=== PATIENT | female | born 1975 | race Caucasian/White ===

== ENCOUNTER → 2020-07-09 09:06 | Outpatient (REF) | payer MEDICAID, SELFPAY ==
--- NOTE | 2020-07-09 11:00 | CA_ITS ---
Acquisition Time: 2020-07-09 10:37:30 Total Exercise Time: 00:07:18 Test Indications: Chest Pain Medications: METOPROLOL MECLAZINE Protocol: LISSY Max HR: 162 BPM 92% of Pred: 175 BPM Max BP: 138/080 mmHG Max Work Load: 9.0 METS Stress ECHO using Bruse protocol. Pt tolerated well, denies any anginal sx. Pt exercised for total of 7 min 18 sec. METS 9.00 and TAPHR up to 92 %. EKG without any arrhythmias, no ischemic changes seen during exercise or in recovery period. ECHO images taken at rest and immediately after peak HR reached. Definity contrast used. Normotensive resaponse to exercise. Test reviewed with Dr. Weir. Referred By: Renny Murray Overread By: Shaka Anderson
== END ==
LOC: HO.CARD 09:06
PROVIDERS: Visit Provider Internal Medicine Cardiovascular Disease
DX: R07.89 Other chest pain (principal)
CPT/HCPCS: 93350; Q9957

== ENCOUNTER 2020-08-05 13:28 | Outpatient (REF) | payer MEDICAID, SELFPAY ==
[2020-08-05 14:56] LABS: Alanine Aminotransferase 13 U/L (0-31); Aspartate Amino Transferase 17 U/L (5-31); Cholesterol 201 mg/dL; HDL Cholesterol 42 mg/dL; LDL Cholesterol Calculated 138 mg/dl; Triglycerides 108 mg/dL
== END 2020-08-05 13:29 | disposition home or self-care (01) ==
LOC: HO.LAB 13:28
PROVIDERS: PCP Family Medicine; Visit Provider Internal Medicine Cardiovascular Disease
DX: E78.5 Hyperlipidemia, unspecified (principal)
CPT/HCPCS: 36415; 80061; 84450; 84460

== ENCOUNTER 2023-01-14 08:23 | Outpatient (REF) | payer MEDICAID, SELFPAY ==
[2023-01-14 11:56] LABS: Cholesterol 167 mg/dL; HDL Cholesterol 41 mg/dL; LDL Cholesterol Calculated 110 mg/dl; Triglycerides 80 mg/dL
== END 2023-01-14 08:24 | disposition home or self-care (01) ==
LOC: HO.HHCL 08:23
PROVIDERS: Visit Provider Internal Medicine Cardiovascular Disease
DX: E78.5 Hyperlipidemia, unspecified (principal)
CPT/HCPCS: 36415; 80061

== ENCOUNTER 2025-01-23 09:30 | Outpatient (REF) | payer MEDICAID, SELFPAY ==
--- OUTSIDE RECORDS SUMMARY | 2025-01-23 10:08 | XMS_ITS | Clinical Summary ---
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 18 g 01/05/2024 Active Dextromethorpha n-guaiFENesin (Mucinex DM) 30-600 MG tablet sustained-relea se 12 hour Use 1 tab TID 28 tablet 01/05/2024 Active Active Problems Problem Noted Date Diagnosed Date Class 1 obesity due to exces s calories with body mass index (BMI) of 33.0 to 33.9 in adult 01/16/2025 Assessment & Plan (01/16/2025 2:12 PM EDT): Discussed re weight reduction options including exercise, life style modifications, diet. Recommended to decrease soda and sugary beverage consumption, increase protein intake with meals (at least 1 portion of protein with each meal) to assist with satiety, increase dietary fiber Recommended at least 150 min/week of moderate intensity exercise. Order labs and follow-up with me next month Episodic lightheadedness 01/16/2025 Assessment & Plan (01/16/2025 2:14 PM EDT): Unclear if related to migraines only, could be related to positional vertigo. Order labs and keep symptoms diary, follow-up with me in 4 weeks Palpitations 01/16/2025 Assessment & Plan (01/16/2025 2:12 PM EDT): Unclear reason at this time. Will obtain cardiology records from Dr. Alcala. Continue metoprolol and follow-up with me in 4 weeks Order labs. Will continue to evaluate VIKKI at next visit Breast cancer screening by mammogram 01/16/2025 Assessment & Plan (01/16/2025 2:12 PM EDT): Order mammogram Generalized anxiety disorder 01/16/2025 Assessment & Plan (01/16/2025 2:13 PM EDT): VIKKI today is 2 the patient reports recurrent anxiety for many years, she did not want to elaborate on some of her family history. She declined referral at this time Will continue to evaluate at next visit, order labs Chronic low back pain 05/09/2015 Migraine 05/09/2015 Assessment & Plan (01/16/2025 2:14 PM EDT): We discussed the importance of taking NSAIDs or Excedrin Migraine JULIANN at onset of migraine. She will keep a symptom diary and follow-up with me at next visit. Order labs, may or not need an MRI of the brain --> will evaluate after next visit Mitral valve regurgitation 05/09/2015 Encounters Date Type Department Care Team Description 01/16/2025 9:15 AM EDT Office Visit [facility] [address] [place] [address] Holly Stanley MD Migraine with aura and without status migrainosus, not intractable (Primary Dx); Episodic lightheadedness; Palpitations; Generalized anxiety disorder; Class 1 obesity due to excess calories with body mass index (BMI) of 33.0 to 33.9 in adult, unspecified whether serious comorbidity present; Breast cancer screening by mammogram; Dietary counseling; Exercise counseling 01/16/2025 Telephone [facility] [address] [place] [address] Holly Stanley MD MAMMO ORDER FAXED 01/16/2025 Telephone [facility] [address] [place], [place] [phone] Holly Stanley MD Dr.Nitin record request echo 01/16/2025 Travel 01/15/2025 Telephone [facility] [address] [place], [place] [phone] Holly Stanley MD chart prep 01/09/2025 Patient Outreach [facility] [address] [place], [place] [phone] Holly Stanley MD Pre-visit Planning (SDOH negative. Tobacco screening negative. ) 01/09/2025 Travel 11/07/2024 Telephone [facility] [address] [place], [place] [phone] Catalina Palacio [place] Appointment Request from Last 3 Months Family History Medical History Relation Name Comments HIV Father HIV Mother Diabetes Mother's Sister Stroke Mother's Sister Relation Name Status Comments Father Mother Mother's Sister Social History Tobacco Use Types Packs/Day Years Used Date Smoking Tobacco: Never Smokeless Tobacco: Never Tobacco Cessation:Counseling Given: Not Answered Depression Answer Date Recorded Patient Health Questionnaire-9 Score 0 01/16/2025 Patient Health Questionnaire-9 Score 0 01/16/2025 Last PHQ-9: Questionnaire Data Not on file 0 01/16/2025 Housing Stability Answer Date Recorded What is your housing situation today? I have [place] 01/09/[address] you li ve. Do you have problems with any of the following? None of the above 01/09/2025 Food Insecurity Answer Date Recorded Within the past 12 months, y ou worried that your food would run out before you got money to buy more: Never True 01/09/2025 Within the past 12 months,th e food you bought just didn't last and you didn't have enough money to get more: Never True 04/2025 Transportation Answer Date Recorded In the past 12 months, has l ack of transportation kept you from medical appts, meetings, work or from getting things needed for daily living? No 01/09/2025 Utilities Answer Date Recorded In the past 12 months, has t he electric, gas, oil or water company threatened to shut off services in your home? No 01/09/2025 Depression Answer Date Recorded Patient Health Questionnaire-2 Score 0 01/16/2025 Internet Access Answer Date Recorded Internet Access Q1 Yes 01/09/2025 Internet Access Q2 Not on file 01/09/2025 Comments No Sex and Gender Information Value Date Recorded Sex Assigned at Female 03/30/2022 10:20 AM EDT Legal Sex Female 10:20 AM EDT Gender Identity Choose not to disclose 10:20 AM EDT Sexual Orientation Straight 03/30/2022 10 :20 AM EDT Last Filed Vital Signs Vital Sign Reading Time Taken Comments Blood Pressure 130/79 01/16/2025 9:04 AM EDT Pulse 74 01/16/2025 9:04 AM EDT Temperature 37.1 C (98.7 F) 01/16/2025 9:04 AM EDT Respiratory Rate 15 01/16/2025 9:04 AM EDT Oxygen Saturation 99% 01/16/2025 9:04 AM EDT Inhaled Oxygen Concentration - - Weight 79.7 kg (175 lb 12.8 oz) 01/16/2025 9:04 AM EDT Height 154.9 cm (5' 1 ) 01/16/2025 9:04 AM EDT Body Mass Index 33.22 01/16/2025 9:04 AM EDT Plan of Treatment Upcoming Encounters Date Type Department Care Team (Late st Contact Info) Description 03/20/2025 11:45 AM EDT Office Visit [facility] [address] [place] [address] Holly Stanley MD [address] [place] [address] Health Maintenance Due Date Last Done Comments CT Colonography 1975 Colonoscopy 1975 Colorectal Cancer Screening 1975 FIT DNA/Cologuard 1975 FIT 1975 FOBT 1975 HIV Screening 1975 Lipid Panel 1975 Sigmoidoscopy 1975 Family Planning (PISQ) 1990 Hepatitis C Screening 1993 Hepatitis B Vaccines (1 of 3 - 19+ 3-dose series) 1994 Pneumococcal Vaccine: Pediatrics (0 to 5 Years) and At-Risk Patients (6 to 49) Years (1 of 2 - PCV) 1994 Pap Smear 02/23/1996 Cervical Cancer Screening 2005 HPV/Cotest 2005 DTaP/Tdap/Td Vaccines (2 - Td or Tdap) 05/17/2019 05/17/2009 Mammogram 01/05/2020 01/04/2018 COVID-19 Vaccine (3 - season) 2024 10/30/2020, 10/07/2020 Influenza Vaccine (#1) 2025 5, 06/22/2012, 03/16/2011, Additional history exists Zoster Vaccines (1 of 2) 2025 Disability Screening 01/09/2026 01/09/2025 SDOH Screening 01/09/2026 01/09/2025 Alcohol/Substance Use Screening 01/16/2026 01/16/2025 Depression Screening 01/16/2026 01/16/2025, 01/17/20 Tobacco Screening 01/16/2026 01/16/2025 RSV Patients and Patients Aged 60 years or older (1 - 1-dose 75+ series) 2050 HIB Vaccines Aged Out No longer eligi ble based on patient's age to complete this topic HPV Vaccines Aged Out No longer eligi ble based on patient's age to complete this topic Hepatitis A Vaccines Aged Out No long er eligible based on patient's age to complete this topic IPV Vaccines Aged Out No longer eligi ble based on patient's age to complete this topic Meningococcal B Vaccine Aged Out No l onger eligible based on patient's age to complete this topic Meningococcal Vaccine Aged Out No luisa mik eligible based on patient's age to complete this topic RSV under 20 months Aged Out No longe r eligible based on patient's age to complete this topic Rotavirus Vaccines Aged Out No longer eligible based on patient's age to complete this topic Procedures Procedure Name Priority Date/Time Associated Diagnosis Comments BI MAMMOGRAM SCREENING BILATERAL Routine 01/04/2018 4:06 PM EDT from Last 3 Months or Most Recently Relevant to Health Maintenance Results * DIGITAL BILATERAL SCREEN 1 (01/04/2018 4:06 PM EDT) Anatomical Region Laterality Modality Breast Bilateral Mammography 01/04/2018 4:06 PM EDT Narrative 01/04/2018 4:08 PM EDT Refer to the Notes tab for result details [facility] Procedure: DIGITAL BILATERAL SCREEN 1 Procedure Note Provider, MD Muna - 08/22/2022 Refer to the Notes tab for result details [facility] Procedure: DIGITAL BILATERAL SCREEN 1 Shauna Harper DO IMG BI PROCEDURES Final Resu lt from Last 3 Months or Most Recently Relevant to Health Maintenance Insurance [id number] HSN PARTIAL Care Teams Chemical Milling Processor Relationship Specialty Start Date End Date Holly Stanley MD [address] [place] [phone] PCP - General Internal Medicine 01/16/25
[2025-01-23 11:05] LABS: MANUAL DIFF FLAG NO
[2025-01-23 11:13] LABS: Hematocrit 35.3 % (37.0-47.0); Hemoglobin 11.5 g/dl (12.0-16.0); Imm Gran Abs Auto 0.01 X10*3/uL (0.00-0.03); Imm Gran Pct Auto 0.2 % (0.0-0.4); Lymphocytes Absolute Auto 1.9 X10*3/uL (1.2-4.9); Mean Corpuscular HGB Conc 32.6 g/dl (31.0-35.0); Mean Corpuscular Hemoglobin 28.0 pg (27.0-33.0); Mean Corpuscular Volume 85.9 fL (80.0-98.0); NRBC Abs Auto 0.000 X10*3/uL (0.0-0.012); NRBC Pct Auto 0.0 /100WBC (0.0-0.2); Platelet Count 290 X10*3/uL (160-400); Red Blood Count 4.11 X10*6/uL (4.20-5.50); White Blood Count 5.8 X10*3/uL (4.8-10.8)
[2025-01-23 11:27] LABS: Hemoglobin A1C 117.5642 umol/L; Total Hemoglobin (HGBA1C) 3080.3470 umol/L
[2025-01-23 11:46] LABS: Alanine Aminotransferase 20 U/L (0-31); Albumin Level 3.9 g/dL (3.5-5.0); Alkaline Phosphatase 88 U/L (39-117); Anion Gap 8 (12-20); Aspartate Amino Transferase 28 U/L (5-31); Blood Urea Nitrogen 7 mg/dL (9-16); Calcium 8.8 mg/dL (8.4-10.2); Carbon Dioxide 26 mmol/L (22-29); Chloride 107 mmol/L (96-108); Cholesterol 180 mg/dL (<200); Estimated Glomerular Filt Rate > 60; HDL Cholesterol 47 mg/dL (>40); Potassium 4.2 mmol/L (3.3-5.1); Sodium 137 mmol/L (135-145); Total Protein 7.4 g/dL (6.5-8.0); Triglycerides 90 mg/dL (<150)
[2025-01-23 11:58] LABS: HBS Num1 0.88 mIU/mL (0-7.99); HBc Num1 0.13 S/CO (0.00-0.79); HBsAGNum1 0.46 S/CO (0.00-0.99); HIV Num 1 0.06 S/CO (0.00-0.99); Hepatitis A Antibody IgM 0.16 Index (0-0.79); Hepatitis B Surface Antigen Negative (Negative); Syphilis Screen Nonreactive (Nonreactive); ~HepC Num1 0.18 S/CO (0.00-0.79); ~Hepatitis A Antibody IgM Nonreactive (Nonreactive); ~Hepatitis B Surface Antibody NONREACTIVE (Nonreactive); ~Hepatitis C Antibody Nonreactive (Nonreactive)
[2025-01-23 12:22] LABS: Reflex LDLD? No
== END 2025-01-23 09:31 | disposition home or self-care (01) ==
LOC: HO.HHCL 09:30
PROVIDERS: PCP Internal Medicine; Visit Provider Internal Medicine
DX: Z01.84 Encounter for antibody response examination (principal); Z11.59 Encounter for screening for other viral diseases; Z11.3 Encounter for screening for infections with a predominantly sexual mode of transmission; Z11.4 Encounter for screening for human immunodeficiency virus [HIV]; G43.109 Migraine with aura, not intractable, without status migrainosus; E66.811 Obesity, class 1; Z68.33 Body mass index [BMI] 33.0-33.9, adult; R00.2 Palpitations; R42 Dizziness and giddiness
CPT/HCPCS: 36415; 80053; 80061; 82306; 83036; 84443; 85025; 86704; 86706; 86709; 86780; 86803; 87340; 87389